=== PATIENT | female | born 1985 | race African-American/Black ===

== ENCOUNTER 2024-12-10 18:29 | Emergency (ER) | payer BC ==
[~2024-12-10] VITALS: Ht 167.6 cm; Wt 80.0 kg
[2024-12-10 18:45] VITALS: TEMP 36.6; O2SAT 99
[2024-12-10 19:47] LABS: BASOPHILS % 0.8 % (0.0-2.0); EOSINOPHILS % 0.9 % (0.0-5.0); HEMATOCRIT. 38.3 % (36.0-48.0); HEMOGLOBIN. 12.9 g/dL (12.0-16.0); LYMPHOCYTES % 16.3 % (20.0-50.0); MEAN PLATELET VOLUME 9.9 fl (7.4-10.4); MONOCYTES % 3.7 % (2.0-8.0); NEUTROPHILS % 78.3 % (40.0-76.0); PLATELET 235 x1000/uL (130-400); RED BLOOD CELL COUNT 4.39 mill/uL (4.2-5.4); RED CELL DISTRIBUTION WIDTH 13.5 % (11.6-14.6)
[2024-12-10 20:09] LABS: HCG SCREEN NEGATIVE
[2024-12-10 20:12] LABS: CREATININE 0.9 mg/dL (0.6-1.0)
[2024-12-10 20:13] LABS: ETHANOL BLOOD < 10 mg/dL (<10); UREA NITROGEN BLOOD 10 mg/dL (9-23)
[2024-12-10 20:14] LABS: ASPARTATE AMINOTRANSFERASE 16 IU/L (<34)
[2024-12-10 20:15] LABS: BILIRUBIN DIRECT 0.1 mg/dL (<=3.0); BILIRUBIN TOTAL 0.4 mg/dL (0.1-1.0); PROTEIN TOTAL 7.4 g/dL (6.0-8.3)
[2024-12-10] MEDS: SODIUM CHLORIDE 0.9% 1,000 ML IV ONE (22:30)
[2024-12-10] MEDS: ONDANSETRON HCL 4MG/2ML INJ IV ONE (22:31)
[2024-12-10] MEDS ORDERED: OFLO5DRO4 LEFT EAR (23:25)
[2024-12-10] MEDS ORDERED: ONDA4TAB50 MT (23:29)
[2024-12-10] MEDS ORDERED: MAG-55 MT (23:30)
[2024-12-10 23:54] VITALS: BP 129/67; PULSE 57; RESP 16; O2SAT 100
[2024-12-10 23:54] LABS: *AMPHETAMINES SCREEN URINE NEGATIVE (NEGATIVE); *BARBITURATES SCREEN URINE NEGATIVE (NEGATIVE); *BENZODIAZEPINES SCREEN URINE NEGATIVE (NEGATIVE); *COCAINE SCREEN URINE NEGATIVE (NEGATIVE); CANNABINOID URINE SCREEN PRESUMPTIVE POSITIVE (NEGATIVE); ECSTASY MDMA SCREEN URINE NEGATIVE (NEGATIVE); METHADONE URINE SCREEN NEGATIVE (NEGATIVE); OPIATES URINE SCREEN NEGATIVE (NEGATIVE); PHENCYCLIDINE URINE SCREEN NEGATIVE (NEGATIVE)
== END 2024-12-11 00:05 | disposition home or self-care (01) ==
LOC: ER 18:29
DX: K29.70 Gastritis, unspecified, without bleeding (principal); E86.0 Dehydration; R11.2 Nausea with vomiting, unspecified; R50.9 Fever, unspecified; Z79.899 Other long term (current) drug therapy
CPT/HCPCS: 80076; 80305; 80048; 80320; 84703; 83690; 85025; 36415; 96361; 96374; 99283; J2405; J7030; G0480